=== PATIENT | female | born 1985 | race Caucasian/White ===

== ENCOUNTER 2016-12-06 23:56 | Emergency (ER) | payer OTHER ==
[~2016-12-06] VITALS: Ht 172.7 cm; Wt 68.0 kg
[2016-12-06 23:59] VITALS: BP 140/89
[2016-12-07 00:58] LABS: BASOPHILS # (AUTO) 0.4 K/uL (0.00-0.22); EOSINOPHILS # (AUTO) 0.1 K/uL (0-0.4); EOSINOPHILS % (AUTO) 1.2 % (0.0-4.0); HEMATOCRIT 42.2 % (36-48); HEMOGLOBIN 13.9 g/dL (12.0-16.0); LYMPHOCYTES # (AUTO) 1.4 K/uL (2.5-16.5); LYMPHOCYTES % (AUTO) 16.3 % (20.5-51.1); MEAN CORPUSCULAR HEMOGLOBIN 30 pg (27-31); MEAN CORPUSCULAR HGB CONC 33 g/dL (33-37); MEAN CORPUSCULAR VOLUME 91 fL (80-94); MONOCYTES # (AUTO) 1.3 K/uL (0.8-1.0); MONOCYTES % (AUTO) 15.1 % (1.7-9.3); NEUTROPHILS # (AUTO) 5.6 K/uL (1.8-7.7); NEUTROPHILS % (AUTO) 63.4 % (42.2-75.2); PLATELET COUNT (AUTO) 203 K/uL (140-450); RED BLOOD CELL COUNT(AUTO) 4.62 MIL/uL (4.20-5.40); RED CELL DISTRIBUTION WIDTH 12.6 % (11.6-13.7); WHITE BLOOD COUNT (AUTO) 8.8 K/uL (4.8-10.8)
[2016-12-07 01:09] LABS: ANION GAP 12.9 (8-16); CARBON DIOXIDE 28.5 mmol/L (21-32); CREATININE 0.9 mg/dL (0.6-1.3); POTASSIUM 3.4 mmol/L (3.5-5.1)
[2016-12-07 01:15] LABS: TOTAL BILIRUBIN 0.6 mg/dL (0.0-1.0)
[2016-12-07 01:29] VITALS: BP 157/99
== END 2016-12-07 01:29 | disposition left against medical advice (07) ==
LOC: MED 23:56
DX: F15.10 Other stimulant abuse, uncomplicated (principal); R06.00 Dyspnea, unspecified; R07.89 Other chest pain; Z86.73 Personal history of transient ischemic attack (TIA), and cerebral infarction without residual deficits; F17.210 Nicotine dependence, cigarettes, uncomplicated
CPT/HCPCS: 36415; 80053; 83880; 84484; 85025; 99283; 99284

== ENCOUNTER 2016-12-07 03:27 | Emergency (ER) | payer OTHER ==
[~2016-12-07] VITALS: Ht 172.7 cm; Wt 68.0 kg
[2016-12-07 03:36] VITALS: BP 148/95
--- NOTE | 2016-12-07 03:44 | NUR ---
PT TAKEN TO BED 4
--- NOTE | 2016-12-07 03:50 | NUR ---
PT IS A 31 Y/O FEMALE WHO PRESENTS TO THE ED C/O VISUAL HALLUCINATIONS. PT STATES, "A MONSTER IS OUT TO GET ME." PT DENIES SUICIDAL IDEATION & THOUGHTS OF HURTING SELF OR OTHERS AT THIS TIME. PATIENT DENIES PAIN, N/V/D. PT DENIES ANY PAST MEDICAL HISTORY. PT AAOX4, RR EVEN/UNLABORED, SKIN IS INTACT. PT REPOSITIONED FOR COMFORT, BED PUT IN LOWEST POSITION. ER MD DR. GARRETT MADE AWARE. WILL CONTINUE TO MONITOR.
--- NOTE | 2016-12-07 03:51 | NUR ---
Dr. Ricketts evaluating patient at bedside.
[2016-12-07] MEDS ORDERED: NACL 0.9% 1,000 ML IV ONE (03:55)
[2016-12-07] MEDS ORDERED: LORazepam 1 MG TAB PO ONE (03:55)
--- NOTE | 2016-12-07 05:00 | NUR ---
PT APPEARS TO BE RESTING COMFORTABLY. PT STATES THAT SHE IS STILL SEEING HALLUCINATIONS. ER MD DR. GARRETT NOTIFIED. WILL CONTINUE TO MONITOR.
[2016-12-07] MEDS ORDERED: LORazepam 2 MG/ML VIAL IVP ONE (05:05)
[2016-12-07] MEDS ORDERED: HALOPERIDOL IM 5 MG/ML VIAL IM ONE (05:05)
--- NOTE | 2016-12-07 05:25 | NUR ---
PT PULLED ON IV; IV NO LONGER FLUSHABLE; IV REMOVED, CATHETER INTACT, AND SITE BENIGHT; APPLIED 4X4 GAUZE AND TAPE TO STOP BLEEDING; NO INFILTRATION, ERYTHEMA OR SWELLING NOTED TO SITE AT THIS TIME; PT STATES NO PAIN TO SITE AT THIS TIME; ER MD DR. GARRETT NOTIFIED; STATES OK TO D/C FLUIDS AT THIS TIME; WILL CONTINUE TO MONITOR.
--- NOTE | 2016-12-07 06:00 | NUR ---
PATIENT APPEARS TO BE RESTING COMFORTABLY. ER MD DR. GARRETT NOTIFIED. WILL CONTINUE TO MONITOR.
--- NOTE | 2016-12-07 07:00 | NUR ---
PATIENT APPEARS TO BE RESTING COMFORTABLY. ER MD DR. GARRETT NOTIFIED. WILL CONTINUE TO MONITOR.
--- NOTE | 2016-12-07 07:10 | NUR ---
Pt report given to BJORN GUPTA. Transfer of care at this time.
--- NOTE | 2016-12-07 07:11 | NUR ---
PT REPORT RECEIVED FROM ALONSO PÉREZ. PT SLEEPING AT THIS TIME. VSS. NO URINE PROVIDED.
--- NOTE | 2016-12-07 07:40 | NUR ---
DR. VYAS MADE AWARE OF PT'S REFUSAL. NO NEW ORDERS AT THIS TIME.
--- NOTE | 2016-12-07 07:40 | NUR ---
PT REFUSED URINE SAMPLE.
--- NOTE | 2016-12-07 09:05 | NUR ---
PT AWAKON. VSS. DISCHARGE IN PROGRESS.
[2016-12-07 09:15] VITALS: BP 105/70
--- NOTE | 2016-12-07 09:15 | NUR ---
Patient discharged with v/s stable. Written and verbal after care instructions given and explained. Patient alert, oriented and verbalized understanding of instructions. Ambulatory with steady gait. All questions addressed prior to discharge. ID band removed. Patient advised to follow up with [facility]. Opportunity to ask questions provided and answered.
== END 2016-12-07 09:15 | disposition home or self-care (01) ==
LOC: MED 03:27
DX: F28 Other psychotic disorder not due to a substance or known physiological condition (principal); G92 Toxic encephalopathy; F19.10 Other psychoactive substance abuse, uncomplicated; Z86.73 Personal history of transient ischemic attack (TIA), and cerebral infarction without residual deficits
CPT/HCPCS: 96361; 96372; 96374; 99284; J1630; J2060; J7030

== ENCOUNTER 2016-12-12 16:29 | Emergency (ER) | payer OTHER ==
[~2016-12-12] VITALS: Ht 172.7 cm; Wt 68.0 kg
--- NOTE | 2016-12-12 16:29 | NUR ---
Patient BIBA BLS, transferrd to bed 6. RN evaluating patient at bedside.
[2016-12-12 16:32] VITALS: BP 142/75
--- NOTE | 2016-12-12 16:33 | NUR ---
31 YO FEMALE BIB EMS FROM FIELD FOR SOB R/T METH ABUSE, PATIENT IS AWAKE AND ALERT AND ABLE TO SPEAK IN FULL SENTENCES. DENIES N/V/D; SKIN IS PINK/WARM/DRY; AAOX4 WITH EVEN AND STEADY GAIT; LUNGS CLEAR BL; HR TACHYCARDIA; PT DENIES ANY FEVER, CP OR COUGH AT THIS TIME; PATIENT STATES PAIN OF 0/10 AT THIS TIME; PATIENT POSITIONED FOR COMFORT; HOB ELEVATED; BEDRAILS UP X2; BED DOWN. ER MD MADE AWARE OF PT STATUS.
[2016-12-12] MEDS ORDERED: LORazepam 2 MG/ML VIAL IM ONE (17:15)
--- NOTE | 2016-12-12 17:29 | NUR ---
PT REFUSED X RAY; NOTIFIED DR HARVEY.
[2016-12-12 17:37] LABS: BASOPHILS # (AUTO) 0.4 K/uL (0.00-0.22); BASOPHILS % (AUTO) 3.7 % (0.0-2.0); EOSINOPHILS # (AUTO) 0.1 K/uL (0-0.4); EOSINOPHILS % (AUTO) 0.8 % (0.0-4.0); HEMATOCRIT 39.9 % (36-48); HEMOGLOBIN 13.4 g/dL (12.0-16.0); LYMPHOCYTES # (AUTO) 0.9 K/uL (2.5-16.5); LYMPHOCYTES % (AUTO) 9.8 % (20.5-51.1); MEAN CORPUSCULAR HEMOGLOBIN 30 pg (27-31); MEAN CORPUSCULAR HGB CONC 34 g/dL (33-37); MEAN CORPUSCULAR VOLUME 90 fL (80-94); MONOCYTES # (AUTO) 1.2 K/uL (0.8-1.0); MONOCYTES % (AUTO) 11.9 % (1.7-9.3); NEUTROPHILS # (AUTO) 7.1 K/uL (1.8-7.7); NEUTROPHILS % (AUTO) 73.8 % (42.2-75.2); PLATELET COUNT (AUTO) 391 K/uL (140-450); RED BLOOD CELL COUNT(AUTO) 4.43 MIL/uL (4.20-5.40); RED CELL DISTRIBUTION WIDTH 12.6 % (11.6-13.7); WHITE BLOOD COUNT (AUTO) 9.7 K/uL (4.8-10.8)
[2016-12-12 17:50] LABS: PROTHROMBIN TIME 9.9 secs (10.8-13.4)
[2016-12-12 17:53] LABS: ALBUMIN 3.7 g/dL (3.4-5.0); ANION GAP 13.9 (8-16); CARBON DIOXIDE 27.9 mmol/L (21-32); CREATININE 0.8 mg/dL (0.6-1.3); POTASSIUM 3.8 mmol/L (3.5-5.1); TOTAL BILIRUBIN 0.2 mg/dL (0.0-1.0)
--- NOTE | 2016-12-12 18:00 | NUR ---
EKG AT BEDSIDE.
[2016-12-12 19:00] VITALS: BP 147/97
--- NOTE | 2016-12-12 19:00 | NUR ---
Patient given written and verbal discharge instructions and verbalizes understanding. Given copies of tests performed during visit. Patient is awake, alert and oriented. Ambulatory with steady gait. Refuses offer of [facility] placement. Given list of available shelters in surrounding areas. BP 147/97, [id number]; DENIES HEADACHE OR DIZZINESS. MADE AWARE.
== END 2016-12-12 19:00 | disposition home or self-care (01) ==
LOC: MED 16:29
DX: R07.89 Other chest pain (principal); F15.10 Other stimulant abuse, uncomplicated; F31.9 Bipolar disorder, unspecified; F17.210 Nicotine dependence, cigarettes, uncomplicated
CPT/HCPCS: 36415; 80053; 81025; 83880; 84484; 85025; 85610; 85730; 93005; 96372; 99285; J2060

== ENCOUNTER 2016-12-12 20:15 | Emergency (ER) | payer OTHER ==
[~2016-12-12] VITALS: Ht 172.7 cm; Wt 84.1 kg
[2016-12-12 20:43] VITALS: BP 172/108
--- NOTE | 2016-12-12 22:13 | NUR ---
PT AMBULATED TO ER BED 06
--- NOTE | 2016-12-12 22:15 | NUR ---
31/F c/o seeing hallucination. Pt states "I see a monster." Pt states "I need an IV to get medicine." Pt advised she she needs to follow up with psychiatric services. Homeless packet and psychiatric facilities provided to pt. Pt refusing to leave. Security called to bedside.
--- NOTE | 2016-12-12 22:31 | NUR ---
Pt refused to sign discharge forms. Discharge paperwork provided and resources for homeless shelters and psychiatric facilities.
[2016-12-12 22:32] VITALS: BP 172/108
== END 2016-12-12 22:32 | disposition home or self-care (01) ==
LOC: MED 20:15
DX: F31.9 Bipolar disorder, unspecified (principal)
CPT/HCPCS: 99283

== ENCOUNTER 2016-12-12 23:07 | Emergency (ER) | payer OTHER ==
[~2016-12-12] VITALS: Ht 175.3 cm; Wt 84.6 kg
[2016-12-12 23:25] VITALS: BP 160/103
--- NOTE | 2016-12-12 23:25 | NUR ---
PT BIBA FOR ANXIETY. PT DENIES N/V/D; SKIN IS INTACT, PINK/WARM/DRY; AAOX4, PERRL, WITH EVEN AND STEADY GAIT; LUNGS CLEAR BL, BREATHING UNLABORED; HR EVEN AND REGULAR, BL PERIPHERAL PULSES PRESENT; BS ACTIVE X4, NO TENDERNESS TO PALPATION. PT DENIES ANY FEVER, CP, SOB, OR COUGH AT THIS TIME; PT STATES 0/10 PAIN AT THIS TIME; VSS; PATIENT POSITIONED FOR COMFORT; HOB ELEVATED; BEDRAILS UP X2; BED DOWN.
--- NOTE | 2016-12-12 23:38 | NUR ---
PT REFUSED TO SING OR WANT ANY HOMELESS PATIENT WAIVER FORM.
[2016-12-12 23:47] VITALS: BP 117/66
== END 2016-12-12 23:47 | disposition home or self-care (01) ==
LOC: MED 23:07
DX: F41.9 Anxiety disorder, unspecified (principal); F12.10 Cannabis abuse, uncomplicated; Z86.73 Personal history of transient ischemic attack (TIA), and cerebral infarction without residual deficits
CPT/HCPCS: 99284

== ENCOUNTER 2017-01-16 17:28 | Emergency (ER) | payer SELFPAY ==
[~2017-01-16] VITALS: Ht 172.7 cm; Wt 68.0 kg
--- NOTE | 2017-01-16 17:32 | NUR ---
PATIENT BIBA TO BED 9.
[2017-01-16 17:33] VITALS: BP 158/108
[2017-01-16] MEDS ORDERED: NACL 0.9% 1,000 ML IV ONE ×2 (17:40→19:55)
--- NOTE | 2017-01-16 17:44 | NUR ---
PT BIBA FOR EVALUATION OF SOB X30 MINUTES. PT STS USED MATH X 2 DAYS AGO. DENIES ANY HX.AAOX4 WITH EVEN AND STEADY GAIT; LUNGS CLEAR BL; PT DENIES ANY FEVER, CP AT THIS TIME; PATIENT STATES PAIN OF 0/10 AT THIS TIME; PATIENT POSITIONED FOR COMFORT; HOB ELEVATED; BEDRAILS UP X2; BED DOWN. ER MD MADE AWARE OF PT STATUS.
--- NOTE | 2017-01-16 19:09 | NUR ---
Pt report given to ALONSO RUIZ. Transfer of care at this time.
[2017-01-16 20:12] LABS: APPEARANCE,URINE CLEAR (CLEAR); BILIRUBIN,URINE 1+ (NEGATIVE); BLOOD, URINE NEGATIVE (NEGATIVE); LEUKOCYTE ESTERASE ,URINE NEGATIVE (NEGATIVE); NITRITE, URINE NEGATIVE (NEGATIVE); PH,URINE 5.5 (5.0-9.0); UGLUCOSE NEGATIVE (NEGATIVE)
[2017-01-16 20:20] LABS: COLOR,URINE AMBER (YELLOW)
[2017-01-16 20:25] LABS: BARBITURATE, URINE NEG. ng/ml (NEG <=200); BENZODIAZEPINE, URINE NEG. ng/mL (NEG <=200); CANNABINOID, URINE NEG. ng/mL (NEG <=50); COCAINE, URINE NEG. ng/mL (NEG <=300); OPIATE, URINE NEG. ng/mL (NEG <=2000); PHENCYCLIDINE SCREEN,URINE NEG. ng/mL (NEG <=25)
--- NOTE | 2017-01-16 21:55 | NUR ---
IV removed, catheter intact and site benign. Applied folded 4x4 gauze and tape to stop bleeding.
[2017-01-16 21:56] VITALS: BP 135/79
--- NOTE | 2017-01-16 21:56 | NUR ---
Patient discharged with v/s stable. Written and verbal after care instructions given and explained. Patient verbalized understanding. Ambulatory with steady gait. All questions addressed prior to discharge. Advised to follow up with PMD.
== END 2017-01-16 21:56 | disposition home or self-care (01) ==
LOC: MED 17:28
DX: E86.0 Dehydration (principal); R06.02 Shortness of breath; F17.210 Nicotine dependence, cigarettes, uncomplicated
CPT/HCPCS: 80305; 81003; 81025; 96360; 96361; 99285; J7030; 99284